=== PATIENT | male | born 2000 | race African-American/Black ===

== ENCOUNTER 2024-03-07 16:42 | Emergency (ER) | payer SELFPAY ==
[2024-03-07 16:45] VITALS: BP 141/97
[2024-03-07 17:30] VITALS: BMI 27.8
--- NOTE | 2024-03-07 17:36 | ED.GENMED ---
History of Present Illness
General
Chief Complaint: Musculo-Skeletal Complaint
Source: patient and family
Exam Limitations: none
Time Seen by Provider: 03/07/24 16:54
Nursing documentation reviewed up to this point in time: agreed with
History of Present Illness
History of Present Illness:
23-year-old male presenting to the emergency department today with concerns of left-sided knee discomfort over the past few days he claims that he had additional left-sided shoulder and right-sided knee discomfort randomly without specific injury.
Denies any fevers chest pain shortness of breath or additional concerns. Denies any specific rashes has been able to ambulate denies fevers.
Review of Systems
Review of Systems
Allergies reviewed?: Yes
All Other Systems: ROS reviewed and negative except as documented in HPI and ROS
Phy Exam
Physical Exam
Physical Exam:
GENERAL: Alert , in no apparent distress
EYE: pupils equal and reactive
NECK: Supple, no significant adenopathy.
ENT: o/p clr, mmm.
CARDIAC: Regular rate and rhythm .
LUNGS: Clear breath sounds bilaterally, no acute respiratory distress, no wheezes/rales/rhonchi
ABDOMEN: Soft, without focal tenderness, no r/g, no cvat
NEUROLOGICAL: Alert and oriented, no focal neuro deficits
SKIN: Warm and dry, skin intact.
MUSCULOSKELETAL: N mild diffuse swelling of the knee right no redness or warmth good range of motion no joint laxity, well perfused.
PSYCH: Normal and appropriate interaction.
Course
Orders/Labs/Results
Orders:
Orders
03/07/24 16:50
CR Knee - Left 4 Or More View* Urgent
Comment:
Reason For Exam: pain
Vital Signs
Initial and Last Documented VS:
Initial Vital Signs
Temp Pulse Resp BP Pulse Ox
99.5 F 104 17 141/97 98
03/07/24 16:45 03/07/24 16:45 03/07/24 16:45 03/07/24 16:45 03/07/24 16:45
Last Documented Vital Signs
Temp Pulse Resp BP Pulse Ox
99.5 F 104 17 141/97 98
03/07/24 16:45 03/07/24 16:45 03/07/24 16:45 03/07/24 16:45 03/07/24 16:45
MDM/Problems Addressed
MDM/Problems Addressed:
23-year-old male presenting to the emergency department today with concerns of left-sided knee discomfort over the past few days denies any specific inciting event. Denies specific injury had some fleeting joint discomforts over the past few weeks
as well. X-ray here without acute abnormalities. Patient with no bony tenderness good range of motion no redness or warmth no signs of infection swelling is only to the knee not consistent with DVT. Patient could have a sprain or strain to the
area possibility of Lyme was discussed this will be tested for and sent. Otherwise advised for Motrin Joss bandage rest and elevation and otherwise follow-up with Ortho as needed. Return precautions given.
*Critical Care Note
Total Time (30-74mins, 75-104mins- exclusive of procedures): Not Applicable
ED Attending Note
-
Portions of this chart may have been created with voice recognition software.� Occasional wrong word or��sound alike� substitutions may have occurred due to the inherent limitations of voice recognition software.
Discharge Plan
Departure
Patient Disposition: Home (Routine Discharge)
Date of Disposition: 03/07/24
Time of Disposition: 17:42
Patient with high blood pressure during this ER visit?: No
Condition: Good
Covid-19: Not Applicable
Discharge Problem:
Sprain of knee
Instructions: Knee Sprain (DC)
Prescriptions:
New
ibuprofen 600 mg tablet
600 mg PO Q6H PRN (Reason: Pain) 5 Days Qty: 20 0RF
Referrals:
Brenton Dunlap MD [Active] - Follow up in 5-7 days
Activity Restrictions/Additional Instructions:
You came to the emergency department today with concerns of knee discomfort. Your x-ray did not show any emergent findings please follow close with orthopedics for ongoing symptoms. Will contact you if the Lyme test is positive. Return to the
emergency department for any worsening, new or concerning symptoms.
Interventions
Interventions:
*Risk Screen - Suicide Last Done: 03/07/24 17:30
*General Assessment Last Done: 03/07/24 17:30
*Neglect/Abuse Screening Last Done: 03/07/24 17:30
ED- Fall Risk Assessment Last Done: 03/07/24 17:30
*ED COVID-19 Vaccine History Last Done: 03/07/24 16:48
ED-Musculoskeletal Assessment Last Done: 03/07/24 17:30
Discharge Date and Time
Print Language: TURKISH
[2024-03-07] MEDS: MOTRIN 800 MG PO (17:54)
[2024-03-07 18:00] VITALS: BP 129/80
[2024-03-07 19:38] VITALS: BP 128/73
[2024-03-10 15:09] LABS: Lyme Antibody Screen, EIA Negative (Negative)
== END 2024-03-07 19:38 | disposition home or self-care (01) ==
LOC: EMR 16:42
PROVIDERS: Physician Assistant; EMERGENCY PHYSICIAN Emergency Medicine
DX: S83.92XA Sprain of unspecified site of left knee, initial encounter (principal); X58.XXXA Exposure to other specified factors, initial encounter
CPT/HCPCS: 99284; 73564; 86618; 93971

== ENCOUNTER 2024-05-15 18:41 | Emergency (ER) | payer OTHER, SELFPAY ==
[2024-05-15 18:43] VITALS: BP 151/92
--- NOTE | 2024-05-15 19:25 | ED.GENMED ---
History of Present Illness
General
Chief Complaint: Musculo-Skeletal Complaint
Source: patient
Time Seen by Provider: 05/15/24 19:11
History of Present Illness
History of Present Illness:
24yoM with no significant past medical history presenting with his mother for evaluation of joint pains. 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 The pain will typically last a few days before resolving and is sometimes
associated with swelling. He currently has pain in his right knee and left wrist. He denies any injuries or inciting incident. He has been taking ibuprofen as needed with some improvement. He denies any fevers, chills, rashes. He was seen in the ED
on 03/07/24 for similar complaints. Lyme testing was negative at that time.
Phy Exam
General Physical Exam
General Presentation: well appearing and no apparent distress
General age: appears stated age
General Skin: warm and dry
General Habitus: normal
General Mental: alert
Pulmonary Exam
Pulmonary Exam: no respiratory distress
Gastrointestinal Exam
Gastrointestinal Exam: non tender, soft and non distended
Ynes Coma Scale
Eye Opening: Spontaneous
Verbal Response: Oriented
Motor Response: Obeys Commands
GCS Total Score: 15
Musculoskeletal Exam
Musculoskeletal Exam: full ROM and other (No joint erythema or swelling noted)
Skin Exam
Skin Exam: normal color and warm/dry
Psychiatric Exam
Psychiatric Exam: normal mood/affect
Course
Orders/Labs/Results
Orders:
Orders
05/15/24 19:33
CRP [C-Reactive Protein] Urgent
Complete Blood Count/With Diff Urgent
Comprehensive Metabolic Panel Urgent
ESR [Erythrocyte Sed Rate] Urgent
Lyme Progressive Urgent
Monotest Urgent
Comment: ADD ON
05/15/24 20:24
Add On- LAB Urgent
Tests Added?: Monospot
05/15/24 21:17
Hepatitis A IgM Antibody Urgent
Hepatitis B Core Ab, IgM Urgent
Hepatitis B Surface Antibody Urgent
Hepatitis B Surface Antigen Urgent
Hepatitis C Antibody Urgent
Abnormal Lab Results
05/15/24
19:33
RBC 4.14 L 10^6/uL
(4.70-6.10)
MCV 96.9 H fL
(80.0-94.0)
MCH 33.3 H pg
(27.0-31.0)
RDW 11.4 L %
(11.5-14.5)
MPV 11.2 H fL
(7.4-10.4)
ESR 39 H mm/hour
(0-20)
Glucose 123 H mg/dl
(70-99)
Total Bilirubin 1.7 H mg/dl
(0.2-1.3)
AST 381 H U/L
(17-59)
ALT 650 H* U/L
(0-50)
Alkaline Phosphatase 174 H U/L
(38-126)
C-Reactive Protein 40.30 H mg/L
(0.0-10.00)
Total Protein 8.8 H g/dl
(6.3-8.2)
05/15/24 19:33
05/15/24 19:33
Vital Signs
Initial and Last Documented VS:
Initial Vital Signs
Temp Pulse Resp BP Pulse Ox
98.3 F 107 18 151/92 99
05/15/24 18:43 05/15/24 18:43 05/15/24 18:43 05/15/24 18:43 05/15/24 18:43
Last Documented Vital Signs
Temp Pulse Resp BP Pulse Ox
98 F 73 18 117/69 99
05/15/24 21:20 05/15/24 21:20 05/15/24 21:20 05/15/24 21:20 05/15/24 21:20
MDM/Problems Addressed
Differential Diagnosis Includes:
24yoM here with migratory joint pains x several months. Denies trauma. No systemic symptoms. He is afebrile and hemodynamically stable. He is well-appearing in no acute distress. No joint swelling or erythema noted on exam. Differential diagnosis
includes but is not limited to: Lyme disease, rheumatologic disease, doubt fracture, doubt septic arthritis
Initial ED plan: Check CBC, CMP, ESR/CRP, and Lyme testing.
*Critical Care Note
Total Time (30-74mins, 75-104mins- exclusive of procedures): Not Applicable
Update Note
Update Note:
Both CRP and ESR are elevated. Transaminitis noted with AST 381, ALT 650, and total bili 1.7. No prior labs to compare to. Patient denies any Tylenol or alcohol use. He also denies any abdominal pain and there is no right upper quadrant
tenderness on abdominal exam. Foard and hepatitis testing added. Case discussed with GI and no further recommendations given. Patient was advised to follow-up closely with his PCP for further evaluation. ED return precautions discussed. He was
discharged in stable condition.
ED Attending Note
-
Portions of this chart may have been created with voice recognition software.� Occasional wrong word or��sound alike� substitutions may have occurred due to the inherent limitations of voice recognition software.
Discharge Plan
Departure
Patient Disposition: Home (Routine Discharge)
Date of Disposition: 05/15/24
Time of Disposition: 21:10
Patient with high blood pressure during this ER visit?: Yes
Discharge Problem:
Polyarthralgia, Transaminitis
Instructions: Muscle and Bone Pain (DC)
Prescriptions:
No Action
ibuprofen 600 mg tablet
600 mg PO Q6H PRN (Reason: Pain) 5 Days Qty: 20 0RF
Referrals:
NONE,* [Active] -
Activity Restrictions/Additional Instructions:
Please call tomorrow morning to schedule a follow-up with your family doctor. Return to the ER with any new or worsening symptoms.
Interventions
Interventions:
*Risk Screen - Suicide Last Done: 05/15/24 21:22
*General Assessment Last Done: 05/15/24 21:22
*Neglect/Abuse Screening Last Done: 05/15/24 21:22
ED- Fall Risk Assessment Last Done: 05/15/24 21:22
*ED COVID-19 Vaccine History Last Done: 05/15/24 21:22
*Nursing Disposition Last Done: 05/15/24 21:22
ED-Musculoskeletal Assessment Last Done: 05/15/24 19:46
Discharge Date and Time
Discharge Date/Time: 05/15/24 21:23
Print Language: THAI
[2024-05-15 19:43] LABS: % Basophils 0.4 % (0-2); % Eosinophils 1.2 % (0-6); % Immature Granulocytes 0.1 % (0-0.5); % Lymphocytes 39.5 % (20.5-51.1); % Monocytes 7.2 % (1.7-9.3); % Neutrophils 51.6 % (42.2-75.2); Absolute Eosinophils 0.1 10^3/uL (0-0.7); Absolute Lymphocytes 2.7 10^3/uL (1.2-3.4); Absolute Monocytes 0.5 10^3/uL (0.1-0.6); Absolute Neutrophils 3.6 10^3/uL (1.4-6.5); Hematocrit 40.1 % (39.0-52.0); Hemoglobin 13.8 g/dL (13.0-18.0); Mean Corp Hgb Conc. 34.4 g/dL (33.0-37.0); Mean Corpuscular Hgb 33.3 pg (27.0-31.0); Mean Corpuscular Volume 96.9 fL (80.0-94.0); Mean Platelet Volume 11.2 fL (7.4-10.4); Nucleated Red Blood Cells % 0 % (-); Platelet Count 247 10^3/uL (130-400); Red Blood Cell Count 4.14 10^6/uL (4.70-6.10); Red Cell Dist. Width 11.4 % (11.5-14.5); White Blood Cell Count 6.9 10^3/uL (4.8-10.8)
[2024-05-15 19:52] LABS: Erythrocyte Sed Rate 39 mm/hour (0-20)
[2024-05-15 19:59] LABS: ALT (SGPT) 650 U/L (0-50); AST (SGOT) 381 U/L (17-59); Albumin 4.5 g/dl (3.5-5.0); Alkaline Phosphatase 174 U/L (38-126); Blood Urea Nitrogen 17 mg/dl (9-20); Calcium 9.5 mg/dl (8.4-10.2); Carbon Dioxide 27 mmol/L (22-30); Chloride 103 mmol/L (98-107); Glucose 123 mg/dl (70-99); Sodium 141 mmol/L (135-145); Total Bilirubin 1.7 mg/dl (0.2-1.3); Total Protein 8.8 g/dl (6.3-8.2); eGFR > 60.00
[2024-05-15 20:34] LABS: Monotest Negative (Negative)
[2024-05-15 21:20] VITALS: BP 117/69
[2024-05-15 22:11] LABS: Hepatitis B Surface Antigen Negative (Negative)
[2024-05-15 22:29] LABS: Hepatitis B Surface Antibody Negative; Hepatitis C Antibody Negative (Negative)
[2024-05-19 12:14] LABS: Lyme Antibody Screen, EIA Negative (Negative)
== END 2024-05-15 21:23 | disposition home or self-care (01) ==
LOC: EMR 18:41
PROVIDERS: Physician Assistant; EMERGENCY PHYSICIAN Emergency Medicine; FAMILY PHYSICIAN Family Medicine
DX: M25.561 Pain in right knee (principal); M25.532 Pain in left wrist; R74.01 Elevation of levels of liver transaminase levels
CPT/HCPCS: 99283; 80053; 85025; 85652; 86140; 86308; 86618; 86706; 86803; 87340